=== PATIENT | female | born 1995 | race Two or more races ===

== ENCOUNTER 2017-07-31 19:01 | Emergency (ER) | payer OTHER ==
--- NOTE | 2017-07-31 19:36 | EDM.PDOC ---
ED HPI GENERAL MEDICAL PROBLEM - General Chief Complaint: Chest Pain Stated Complaint: CHEST PAINS Time Seen by Provider: 07/31/17 19:14 Source of Information: Reports: Patient History Limitations: Reports: No Limitations - History of Present Illness INITIAL COMMENTS - FREE TEXT/NARRATIVE: 22-year-old female presents for evaluation treatment of chest pain. Reportedly the chest pain started about 0900 this morning. Reports that it is improving and is currently a 1 out of 10. She does reports at its worst it was a 5 out of 10. She describes as a sharp, pressure. Patient reports that movement seems to make the pain worse. She reports in particular was worse going upstairs and she short of breath with going up stairs. Patient denies any diaphoresis, nausea, vomiting, lightheadedness, syncope, coughs or any fevers. She denies any recent illnesses. She denies any recent travel. Patient denies any underlying medical conditions. She has not had any cardiac history. She is denying medications including no control. Onset: Today Location: Reports: Chest Chest Pain Score (Numeric/FACES): 1 - Related Data Allergies Allergy/AdvReac Type Severity Reaction Status Date / Time No Known Allergies Allergy Verified 07/31/17 19:11 Home Meds: Home Meds . [No Known Home Meds] 07/31/17 [History] Past Medical History - Past Health History Medical/Surgical History: Denies Medical/Surgical History Social & Family History - Tobacco Use Smoking Status *Q: Never Smoker - Caffeine Use Caffeine Use: Reports: Soda ED ROS GENERAL - Review of Systems Review Of Systems: See Below Constitutional: Denies: Fever, Diaphoresis Respiratory: Denies: Shortness of Breath, Cough Cardiovascular: Reports: Chest Pain, Dyspnea on Exertion. Denies: Lightheadedness, Syncope GI/Abdominal: Denies: Abdominal Pain, Nausea, Vomiting Neurological: Denies: Syncope ED EXAM, GENERAL - Physical Exam Exam: See Below Exam Limited By: No Limitations General Appearance: Alert, WD/WN, No Apparent Distress, Obese Eye Exam: Bilateral Eye: Normal Inspection Ears: Normal External Exam Nose: Normal Inspection Throat/Mouth: Normal Inspection, Normal Lips, Normal Oropharynx, Normal Voice, No Airway Compromise Respiratory/Chest: No Respiratory Distress, Lungs Clear, Normal Breath Sounds Cardiovascular: Normal Peripheral Pulses, Regular Rate, Rhythm, No Murmur GI/Abdominal: Soft, Non-Tender Neurological: Alert, Oriented, Normal Cognition Psychiatric: Normal Affect, Normal Mood Skin Exam: Warm, Dry, Normal Color EKG INTERPRETATION EKG Date: 07/31/17 Time: 19:35 Rhythm: NSR Rate (Beats/Min): 96 Morgan: Normal P-Wave: Present QRS: Normal ST-T: Normal QT: Normal EKG Interpretation Comments: NSR at [address] changes. Reviewed by myself and Dr. Watters. Course - Vital Signs Last Recorded V/S: Last Vital Signs Temp 36.9 C 07/31/17 19:08 Pulse 98 07/31/17 19:08 Resp 18 07/31/17 19:08 BP 137/84 07/31/17 19:08 Pulse Ox 98 07/31/17 19:08 - Orders/Labs/Meds Orders: Active Orders 24 hr Category Date Time Status Cardiac Monitoring [RC] . DIRECTED Care 07/31/17 19:24 Active EKG 12 Lead [EKG Documentation Completion] [RC] STAT Care 07/31/17 19:24 Active Chest 2V [CR] Stat Exams 07/31/17 19:24 Taken Labs: Laboratory Tests 07/31/17 07/31/17 07/31/17 Range/Units 19:45 19:45 19:45 WBC 14.63 H (3.98-10.04) K/mm3 RBC 5.05 (3.98-5.22) M/mm3 Hgb 14.4 (11.2-15.7) gm/L Hct 42.9 (34.1-44.9) % MCV 85.0 (79.4-94.8) fl MCH 28.5 (25.6-32.2) pg MCHC 33.6 (32.2-35.5) g/dl RDW Std Deviation 44.0 (36.4-46.3) fL Plt Count 312 (182-369) K/mm3 MPV 11.4 (9.4-12.3) fl Neut % (Auto) 61.6 (34.0-71.1) % Lymph % (Auto) 28.2 (19.3-51.7) % Burnett % (Auto) 8.9 (4.7-12.5) % Eos % (Auto) 0.8 (0.7-5.8) Baso % (Auto) 0.3 (0.1-1.2) % Neut # (Auto) 9.01 H (1.56-6.13) K/mm3 Lymph # (Auto) 4.13 H (1.18-3.74) K/mm3 Burnett # (Auto) 1.30 H (0.24-0.36) K/mm3 Eos # (Auto) 0.12 (0.04-0.36) K/mm3 Baso # (Auto) 0.04 (0.01-0.08) K/mm3 Sodium 140 (136-145) mEq/L Potassium 3.6 (3.5-5.1) mEq/L Chloride 103 (98-107) mEq/L Carbon Dioxide 27 (21-32) mEq/L Anion Gap 13.6 (5-15) BUN 11 (7-18) mg/dL Creatinine 0.8 (0.55-1.02) mg/dL Est Cr Clr Drug Dosing 90.47 mL/min Estimated GFR (MDRD) > 60 (>60) mL/min BUN/Creatinine Ratio 13.8 L (14-18) Glucose 91 (74-106) mg/dL Calcium 9.5 (8.5-10.1) mg/dL Total Bilirubin 0.4 (0.2-1.0) mg/dL AST 20 (15-37) U/L ALT 32 (14-59) U/L Alkaline Phosphatase 85 (46-116) U/L Troponin I < 0.017 (0.00-0.056) ng/mL C-Reactive Protein 1.7 H* (<1.0) mg/dL Total Protein 7.6 (6.4-8.2) g/dl Albumin 3.7 (3.4-5.0) g/dl Globulin 3.9 gm/dL Albumin/Globulin Ratio 1.0 (1-2) Lipase 105 (73-393) U/L HCG, Qual Negative (NEGATIVE) - Radiology Interpretation Free Text/Narrative:: chest xray 2 view shows no acute intrathoracic process. Reviewed by myself and Dr. Watters. - Re-Assessments/Exams Free Text/Narrative Re-Assessment/Exam: 07/31/17 20:45 I reviewed the chest x-ray, EKG and lab results the patient. Her chest pain is likely chest wall in origin. She continues to state it is currently a 1 out of 10. I will have her go home and rest. Tylenol or Motrin as needed for pain. Follow-up if not much better in one week. Discharge instructions as documented. Departure - Departure Time of Disposition: 20:46 Disposition: Home, Self-Care 01 Condition: Good Clinical Impression: Chest wall pain Instructions: Chest Wall Pain Referrals: PCP,None [Primary Care Provider] - Sharron Rodriguez NP [ED Midlevel Provider] - Forms: ED Department Discharge Additional Instructions: Go home and rest. make sure you are drinking plenty of fluids. Take [id number] Tylenol or Motrin as needed for discomfort. Follow-up with family medicine if your symptoms are not much better within 1 week. Recommend Sharron Rodriguez NP or Dr. Zavala. Please call [phone] to schedule an appointment with either provider. Please return to the ER if your symptoms change or worsen. - My Orders Last 24 Hours: My Active Orders 07/31/17 19:24 Cardiac Monitoring [RC] . DIRECTED EKG 12 Lead [EKG Documentation Completion] [RC] STAT Chest 2V [CR] Stat - Assessment/Plan Last 24 Hours: My Active Orders 07/31/17 19:24 Cardiac Monitoring [RC] . DIRECTED EKG 12 Lead [EKG Documentation Completion] [RC] STAT Chest 2V [CR] Stat
--- NOTE | 2017-08-02 17:12 | CR ---
Chest: Two views of the chest were obtained. Comparison: No prior chest x-ray. Cardiac silhouette and mediastinum are normal. Lungs are clear. Bony structures are unremarkable. Impression: 1. Nothing acute is identified on two-view chest x-ray. Diagnostic code #1
== END 2017-07-31 21:05 | disposition home or self-care (01) ==
LOC: JD.ED 19:01
DX: R07.89 Other chest pain (principal)
CPT/HCPCS: 36415; 71020; 71020-26; 80053; 83690; 84484; 84703; 85025; 86140; 93005; 99285; 99285-25